=== PATIENT | female | born 1995 | race Caucasian/White ===

== ENCOUNTER 2022-08-14 06:23 | Inpatient (IN) | payer OTHER ==
[~2022-08-14] VITALS: Ht 160 cm; Wt 98.4 kg
[2022-08-14] MEDS ORDERED: PRENATAL + DHA1 EAC1 PO (08:51)
[2022-08-16] MEDS ORDERED: NAPR500T14 PO (08:55)
== END 2022-08-16 12:03 | disposition home or self-care (01) | DRG 807 ==
LOC: OB/GYN 06:23 → LDR 06:23 → OB/GYN 17:24
PROVIDERS: ADMIT Student in an Organized Health Care Education/Training Program; ATTEND Student in an Organized Health Care Education/Training Program
PROC: 10E0XZZ Delivery of Products of Conception, External Approach (ICD-10-PCS; principal; 2022-08-14)
PROC: 0KQM0ZZ Repair Perineum Muscle, Open Approach (ICD-10-PCS; 2022-08-14)
PROC: 4A1HXCZ Monitoring of Products of Conception, Cardiac Rate, External Approach (ICD-10-PCS; 2022-08-14)
DX: O70.1 Second degree perineal laceration during delivery (principal); Z37.0 Single live birth; Z3A.39 39 weeks gestation of pregnancy; Z20.822 Contact with and (suspected) exposure to COVID-19